=== PATIENT | male | born 1985 | race Caucasian/White ===

== ENCOUNTER 2022-05-15 19:33 | Emergency (ER) | payer SELFPAY ==
[~2022-05-15] VITALS: Ht 165.1 cm; Wt 81.6 kg
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
--- NOTE | 2022-05-15 20:15 | NUR ---
POC BS 132 Addendum: 05/15/22 at 2 by YOGESH BS KATHI Rodriguez
[2022-05-15] MEDS ORDERED: NAPR-1009 PO (20:34)
[2022-05-15] MEDS ORDERED: KETOROLAC TROMETHAMINE INJ 60 MG/2 ML VIAL IM ONE (21:00)
[2022-05-15] MEDS ORDERED: KETOROLAC TROMETHAMINE INJ 30 MG/ML VIAL ONE (21:03)
[2022-05-15 21:13] VITALS: BP 140/90
--- NOTE | 2022-05-15 21:13 | NUR ---
Patient discharged to home in stable condition. Written and verbal after care instructions given. Patient verbalizes understanding of instruction.
== END 2022-05-15 21:13 | disposition home or self-care (01) ==
LOC: ER 19:48
DX: S13.4XXA Sprain of ligaments of cervical spine, initial encounter (principal); S39.012A Strain of muscle, fascia and tendon of lower back, initial encounter; E11.65 Type 2 diabetes mellitus with hyperglycemia; V49.59XA Passenger injured in collision with other motor vehicles in traffic accident, initial encounter; Y93.89 Activity, other specified; Y92.413 State road as the place of occurrence of the external cause; Y99.8 Other external cause status
CPT/HCPCS: 99283; 96372; 82962; J1885